=== PATIENT | female | born 1960 | race Caucasian/White ===

== ENCOUNTER 2021-06-12 17:04 | Emergency (ER) | payer OTHER ==
[~2021-06-12] VITALS: Ht 160 cm; Wt 81.6 kg
[~2021-06-12 17:04] MED LIST: ACET1TAB12 PO; ACYC400T5 PO; CITA20TA19 GT; ESCI20TA PO
--- NOTE | 2021-06-12 18:05 | NUR ---
THE PATIENT BIBS FOR C/O FEELING PARANOID, FEEL LIKE BEING THREATENED. DENIES SI/HI. DENIES PAIN. IN ROOM AIR AND DENIES SOB. RESPIRATION REGULAR AND UNLABORED. WILL CONTINUE TO MONITOR THE PATIENT.
[2021-06-12 18:28] LABS: BASOPHILS % (AUTO) 0.4 % (0.0-2.0); EOSINOPHILS % (AUTO) 0.6 % (0.0-6.0); HEMATOCRIT 44 % (33-45); HEMOGLOBIN 14.4 g/dL (11.5-14.8); LYMPHOCYTES # (AUTO) 2.3 K/uL (0.8-4.8); MEAN CORPUSCULAR HGB CONC 33 g/dl (31.0-36.0); MEAN CORPUSCULAR VOLUME 91 fL (82-100); MONOCYTES # (AUTO) 0.6 K/uL (0.1-1.30); MONOCYTES % (AUTO) 8.8 % (2.0-12.0); NEUTROPHILS # (AUTO) 4.2 K/uL (1.8-8.9); NEUTROPHILS % (AUTO) 58.2 % (43.0-81.0); PLATELET COUNT (AUTO) 233 K/uL (150-450); RED BLOOD CELL COUNT(AUTO) 4.81 MIL/uL (4.0-5.2); WHITE BLOOD COUNT (AUTO) 7.2 K/uL (4.3-11.0)
[2021-06-12 18:36] LABS: CARBON DIOXIDE 29 mmol/L (21-32); CHLORIDE 104 mmol/L (98-107); CREATININE 0.6 mg/dL (0.6-1.3); GLUCOSE 102 mg/dL (74-106); SODIUM SERUM 138 mmol/L (136-145); UREA NITROGEN, BLOOD 12 mg/dL (7-18)
[2021-06-12 18:42] LABS: ALANINE AMINOTRANSFERASE 25 U/L (12-78); ALBUMIN 3.8 g/dL (3.4-5.0); ALCOHOL, BLOOD < 3 mg/dL (0-0); ALKALINE PHOSPHATASE 75 U/L (46-116); ASPARTATE AMINOTRANSFERASE 14 U/L (15-37); BILIRUBIN,DIRECT 0.2 mg/dL (0.0-0.2); BILIRUBIN,TOTAL 0.5 mg/dL (0.2-1.0)
[2021-06-12 18:43] LABS: ACETAMINOPHEN < 10 ug/ml (10-30)
[2021-06-12 19:09] LABS: BILIRUBIN,URINE NEGATIVE (NEGATIVE); COLOR,URINE YELLOW (YELLOW); LEUKOCYTE ESTERASE ,URINE NEGATIVE (NEGATIVE); NITRITE, URINE NEGATIVE (NEGATIVE); PROTEIN,URINE NEGATIVE (NEGATIVE); UGLUCOSE NEGATIVE (NEGATIVE); UROBILINOGEN,URINE 0.2 EU/dL (0.2)
--- NOTE | 2021-06-12 19:32 | NUR ---
REPORT GIVEN TO NURSE OPHELIA
--- NOTE | 2021-06-12 19:35 | NUR ---
RECIEVED PT FOR JIMMIE. PT PARANOID AND ANXIOUS ASSISTED TO THE BED AND PROVIDED BLANKET AND TV AND REPORTED DECREASED IN ANXIETY. VSS STABLE, SITTER AT BEDSIDE AND CALL LIGHT WITHIN REACH, RESTING COMFORTABLY.
--- NOTE | 2021-06-12 20:49 | NUR ---
COVID SWAB COLLECTED AND SENT TO LAB
[2021-06-12] MEDS ORDERED: OLANZAPINE 5 MG TABLET PO ONE (21:00)
--- NOTE | 2021-06-12 21:06 | NUR ---
PT REFUSED ZYPREXA DUE TO ANXIETY AND WANTED TO "THINK ABOUT IT". BENEFITS OF MEDICATIONS EXPLAINED AND WILL FOLLOW UP WITH PATIENT.
[2021-06-12] MEDS ORDERED: OLANZAPINE 5 MG TABLET ONE (22:36)
--- NOTE | 2021-06-13 02:43 | NUR ---
ART FROM CRISIS TEAM AT BED SIDE
--- NOTE | 2021-06-13 02:55 | NUR ---
SEEN AND EVALUATED BY TOOLER, ART FROM CRISIS TEAM
--- NOTE | 2021-06-13 04:00 | NUR ---
PT DISCHARGED IN STABLE CONDITION. DENIED SI/HI DENIED WANTING PSYCHIATRIC PLACEMENT. WAS MEDICALLY CLEARED BY MD AND PSYCHIATRICALLY CLEARED BY LABOR RELATIONS TEACHER. PT ALERT AND ORIENTED X4 AND EXPRESSED WANTING TO LEAVE. PT AMBULATORY WITH STEADY GAIT AND WAS PROVIDED WRITTEN AND VERBAL DISCHARGE INSTRUCTIONS.
[2021-06-13 04:04] VITALS: BP 129/78
== END 2021-06-13 04:04 | disposition home or self-care (01) ==
LOC: ER 17:18
DX: F22 Delusional disorders (principal); F23 Brief psychotic disorder; Z20.822 Contact with and (suspected) exposure to COVID-19; Z88.0 Allergy status to penicillin; F17.210 Nicotine dependence, cigarettes, uncomplicated
CPT/HCPCS: 36415; 80048; 80076; 80143; 80307; 80320; 81003; 85025; 87426; 99285; C9803; G0480

== ENCOUNTER 2021-06-13 06:47 | Emergency (ER) | payer OTHER ==
[~2021-06-13] VITALS: Ht 160 cm; Wt 81.6 kg
--- NOTE | 2021-06-13 07:00 | NUR ---
PATIENT BIBRA 839 FOR LEFT ANKLE SPRAIN. PATIENT IS A/O X4 RR EVEN AND UNLABORED, NO SOB NOTED. PATIENT NOTED IN NO ACUTE DISTRESS. PATIENT CONNECTED TO MONITORS.
--- NOTE | 2021-06-13 07:01 | NUR ---
RAD AT BEDSIDE
[2021-06-13 07:43] VITALS: BP 122/76
--- NOTE | 2021-06-13 07:43 | NUR ---
Patient discharged to home in stable condition. Written and verbal after care instructions given. Patient verbalizes understanding of instruction.
== END 2021-06-13 07:44 | disposition home or self-care (01) ==
LOC: ER 06:50
DX: S93.492A Sprain of other ligament of left ankle, initial encounter (principal); F32.9 Major depressive disorder, single episode, unspecified; F41.9 Anxiety disorder, unspecified; F17.200 Nicotine dependence, unspecified, uncomplicated; Z88.5 Allergy status to narcotic agent; Z88.0 Allergy status to penicillin; Z79.899 Other long term (current) drug therapy; W22.8XXA Striking against or struck by other objects, initial encounter; Y93.89 Activity, other specified; Y92.89 Other specified places as the place of occurrence of the external cause; Y99.8 Other external cause status
CPT/HCPCS: 73610-TC